=== PATIENT | female | born 1995 | race Caucasian/White ===

== ENCOUNTER → 2017-08-28 | Outpatient (CLI) | payer MEDICARE, MEDICAID ==
[~2017-08-28] MED LIST: BENADRYL25 MG PO; TYLENOL325 MG PO; ZYVOX600 MG PO
--- NOTE | 2017-08-29 13:24 | CON ---
[address] [address] CONSULTATION Name: FARRAH MACHADO Room: [facility] Sinclair#: [id number] Admission: 08/28/17 Attend Phys: Ino Pan DPM Discharge: Date of : 89 Report #: [id number] THIS REPORT FOR: //name// CC: Ino Meyer DATE OF SERVICE: 08/28/2017 INFECTIOUS DISEASE CONSULTATION AND FOLLOWUP ATTENDING PHYSICIAN: Dr. Ino Pan. 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 HISTORY OF PRESENT ILLNESS: Chart reviewed, the patient examined. The patient returns in followup for ongoing care for her right plantar foot ulceration. Generally, it appears to be benign at this point. There is really no significant surface inflammation noted. On probing, it suggests it is shallower. There is some bloody discharge. No particular odor, no purulence. She has completed a course of antibiotics with dicloxacillin several days ago. At this point, we would not extend the antibiotics. I did discuss with her family as well as her. She is to call if problems or concerns. Continue wound care as prescribed by Dr. Pan. We will be available as needed. <ELECTRONICALLY SIGNED> By: Nahum You MD 08/29/17 1324 [id number] You MD /nt
== END ==
LOC: M.WC 08-14 14:30
DX: T81.89XD Other complications of procedures, not elsewhere classified, subsequent encounter (principal); L89.500 Pressure ulcer of unspecified ankle, unstageable; G82.21 Paraplegia, complete; L03.115 Cellulitis of right lower limb; Q05.9 Spina bifida, unspecified; Y83.8 Other surgical procedures as the cause of abnormal reaction of the patient, or of later complication, without mention of misadventure at the time of the procedure

== ENCOUNTER → 2017-09-11 | Outpatient (CLI) | payer MEDICARE, MEDICAID | LOC: M.WC 01:26 | DX: T81.89XD Other complications of procedures, not elsewhere classified, subsequent encounter (principal); L89.894 Pressure ulcer of other site, stage 4; G82.21 Paraplegia, complete; L03.115 Cellulitis of right lower limb; Y83.8 Other surgical procedures as the cause of abnormal reaction of the patient, or of later complication, without mention of misadventure at the time of the procedure ==

== ENCOUNTER → 2017-09-25 | Outpatient (CLI) | payer MEDICARE, MEDICAID | LOC: M.WC 01:30 | DX: T81.89XD Other complications of procedures, not elsewhere classified, subsequent encounter (principal); G82.21 Paraplegia, complete; Y83.8 Other surgical procedures as the cause of abnormal reaction of the patient, or of later complication, without mention of misadventure at the time of the procedure ==